=== PATIENT | female | born 1980 | race Caucasian/White ===

== ENCOUNTER 2023-05-08 13:42 | Inpatient (IN) | payer SELFPAY ==
[~2023-05-08] VITALS: Ht 162.6 cm; Wt 97.1 kg
[2023-05-08] MEDS ORDERED: LEXAPRO10 MG PO (13:58)
[2023-05-08] MEDS ORDERED: NP THYROID60 MG PO (13:58)
[2023-05-08 14:45] LABS: BASOPHILS 0.2 % (0-2); EOSINOPHILS 0.5 % (0-6); HEMATOCRIT 42.2 % (35.0-50.0); HEMOGLOBIN 14.2 g/dL (12.0-18.0); LYMPHOCYTES 10.2 % (24-44); MCH 30.7 (27-36); MCHC 33.7 g/dl (30-36); MCV 91.2 fl (81-99); MONOCYTES 6.1 % (0-12); PLATELET COUNT 340 K/uL (140-440); RBC 4.63 M/ul (4.3-5.7); RDW 14.7 (10.5-15.0)
[2023-05-08 15:00] LABS: ALBUMIN 3.8 g/dL (3.4-5.0); ANION GAP 14.5 (7-21); BILIRUBIN, TOTAL 0.6 ng/dL (0.2-1.0); BUN/CREATININE RATIO 17.74 (6.0-28.6); CALCIUM 9.1 mg/dL (8.5-10.1); CREATININE, SERUM 0.62 mg/dL (0.55-1.02); POTASSIUM 3.5 mmol/L (3.5-5.1); PROTEIN, TOTAL 7.6 g/dL (6.4-8.2)
[2023-05-08] MEDS ORDERED: SODIUM CHLORIDE 0.9% 1,000 ML IV ONE (15:00)
[2023-05-08] MEDS ORDERED: HYDROmorphone HCL 1 MG/ML SYR IV PRN ×5 (15:00→22:00)
[2023-05-08 15:39] LABS: BILIRUBIN, URINE NEGATIVE (negative); BLOOD/HGB, URINE TRACE-I (Negative); KETONE, URINE SMALL (Negative); LEUK ESTERASE, URINE NEGATIVE (negative); NITRITE, URINE NEGATIVE (negative)
[2023-05-08 15:48] LABS: EPITHELIAL CELLS, URINE SQUAMOUS 1+ /lpf (0-1+); REFLEX CULTURE, URINE No (No); WHITE BLOOD CELLS, URINE 0-1 /HPF (0-5)
[2023-05-08] MEDS ORDERED: LACTATED RINGER'S 1,000 ML IV SCH ×3 (16:45→17:15)
[2023-05-08] MEDS ORDERED: DEXTROSE 5% 100 ML IV ONE (16:59)
[2023-05-08] MEDS ORDERED: PIPERACILLIN/TAZOBACTAM 3.375 GM in DEXTROSE 5% 100 ML IV ONE ×4 (17:00→17:15)
[2023-05-08] MEDS ORDERED: FAMOTIDINE 20 MG/ 2 ML VIAL IV ONE ×2 (17:00)
[2023-05-08] MEDS ORDERED: KETOROLAC TROMETHAMINE 30 MG/ML VIAL IV PRN ×2 (17:15)
[2023-05-08] MEDS ORDERED: ondansetron HCL 4 MG/2 ML VIAL IV PRN ×3 (17:15→18:45)
[2023-05-08] MEDS ORDERED: KETOROLAC TROMETHAMINE 30 MG/ML VIAL ONE (17:26)
[2023-05-08] MEDS ORDERED: METOCLOPRAMIDE HCL 10 MG/2 ML SDV ONE (17:26)
[2023-05-08] MEDS ORDERED: propofoL 200 MG/20 ML VIAL ONE (17:26)
[2023-05-08] MEDS ORDERED: ondansetron HCL 4 MG/2 ML VIAL ONE (17:26)
[2023-05-08] MEDS ORDERED: fentaNYL citrate 100 MCG/2 ML VIAL ONE (17:26)
[2023-05-08] MEDS ORDERED: MIDAZOLAM HCL 2 MG/2 ML VIAL ONE (17:26)
[2023-05-08] MEDS ORDERED: SUCCINYLCHOLINE IN 0.9% NACL 200 MG/10 ML SYRINGE ONE ×2 (17:26→19:54)
[2023-05-08] MEDS ORDERED: DEXAMETHASONE SOD PHOS 4 MG/ML VIAL ONE (17:26)
[2023-05-08] MEDS ORDERED: ROCURONIUM BROMIDE 50 MG/5 ML SYR ONE (17:26)
[2023-05-08] MEDS ORDERED: LIDOCAINE HCL 4% 5 ML AMP ONE (17:26)
[2023-05-08] MEDS ORDERED: LACTATED RINGER'S 1,000 ML IV ONE ×3 (17:26→19:12)
[2023-05-08] MEDS ORDERED: SUGAMMADEX SODIUM 200 MG/2 ML ML ONE (17:26)
[2023-05-08] MEDS ORDERED: FAMOTIDINE 20 MG/ 2 ML VIAL ONE (17:26)
[2023-05-08] MEDS ORDERED: DIGOXIN 500 MCG/2 ML AMP ONE (18:07)
[2023-05-08] MEDS ORDERED: HYDROCORTISONE SOD SUCCINATE 100 MG/2 ML VIAL ONE (18:07)
[2023-05-08] MEDS ORDERED: SODIUM CHLORIDE 0.9% 40 ML IV ONE (18:23)
[2023-05-08] MEDS ORDERED: Ropivacaine HCl 0.5% 30 ML VIAL ONE (18:23)
[2023-05-08] MEDS ORDERED: METOCLOPRAMIDE HCL 10 MG/2 ML SDV IV PRN (18:45)
[2023-05-08] MEDS ORDERED: PROCHLORPERAZINE EDISYLATE 10 MG/2 ML VIAL IV PRN (18:45)
[2023-05-08] MEDS ORDERED: NALOXONE HCL 0.4 MG SYR IV PRN (18:45)
[2023-05-08] MEDS ORDERED: fentaNYL citrate 100 MCG/2 ML VIAL IV PRN (18:45)
[2023-05-08] MEDS ORDERED: IBLOOD GLUCOSE TEST STRIP 1 EA TEST VI PRN (18:45)
[2023-05-08] MEDS ORDERED: MORPHINE SULFATE 10 MG/ML VIAL IV PRN (18:45)
[2023-05-08] MEDS ORDERED: droPERidol 5 MG/2 ML VIAL IV PRN (18:45)
[2023-05-08] MEDS ORDERED: LIDOCAINE 2% VISCOUS 6 ML SYR TOP ONE ×2 (21:00)
[2023-05-08] MEDS ORDERED: FAMOTIDINE 20 MG/ 2 ML VIAL IV SCH ×2 (21:00)
[2023-05-08] MEDS ORDERED: ACETAMINOPHEN 500 MG TAB PO PRN ×2 (21:00)
[2023-05-08] MEDS ORDERED: HEParin SOD (PORCINE) 5,000 UNIT/0.5 ML SYR SUB-Q SCH ×2 (21:00)
[2023-05-08] MEDS ORDERED: ACETAMINOPHEN 1,000 MG/100 ML VIAL ONE (21:01)
--- NOTE | 2023-05-08 21:07 | NUR ---
05/08/232106 Inga Ridley 2033- PT ARRIVES TO PACU UNIT FROM OR VIA BED. PT IS NONRESPONSIVE TO TACTILE STIMULI AT THIS TIME. PT IS ON 11L OF O2 VIA MASK AT THIS TIME, JAW THRUST BEING PERFORMED BY CHERYL JEFFERS. RESPIRATIONS ARE EVEN AND UNLABORED, NO SIGNS OF DISTRESS. ORAL AIRWAY IN PLACE. REPORT RECEIVED FROM FOZIA MCCURDY AT BEDSIDE. 2039- SUCTION D/T SLIGHT AUDIBLE NOISE WHEN BREATHING. RESPIRATIONS ARE EVEN AND UNLABORED, NO SIGNS OF DISTRESS. PT REMAINS NONRESPONSIVE TO TACTILE STIMULI AT THIS TIME. 2042- PT BEGINS TO OPEN EYES, PT IS RESPONSIVE TO VERBAL STIMULI AT THIS TIME. ORAL AIRWAY REMAINS IN PLACE, PT UNABLE TO OPEN MOUTH AT THIS TIME FOR AIRWAY REMOVAL. 11 L OF O2 VIA MASK IN PLACE, RESPIRATIONS EVEN AND UNLABORED, O2 >90% VIA CONT PULSE OX AT THIS TIME.
[2023-05-08 21:54] VITALS: BP 142/79
[2023-05-08] MEDS ORDERED: PIPERACILLIN/TAZOBACTAM 3.375 GM in DEXTROSE 5% 100 ML IV SCH ×2 (22:00)
[2023-05-08] MEDS ORDERED: ACETAMINOPHEN 1,000 MG/100 ML VIAL IV PRN ×2 (22:00)
--- NOTE | 2023-05-08 22:09 | NUR ---
ADMITTED FROM OR/PACU AT 2136, DROWSY, RECEIVED OFIRMEV IV PRIOR TO LEAVING PACU. ON ROOM AIR, IVF INFUSING L WRIST AREA. ABD SITE WITH MIDLINE INCISION, VERY FAINT BOWEL TONES LOWER ABDOMEN, WARREN R LOW ABD, COVERED WITH ACTICOAT DRESSING CDI, SCDS IN PLACE. AT BEDSIDE
[2023-05-08] MEDS ORDERED: PIPERACILLIN/TAZOBACTAM 3.375 GM VIAL ONE (22:42)
[2023-05-08 22:51] VITALS: BP 130/74
[2023-05-08 23:51] VITALS: BP 128/73
--- NOTE | 2023-05-08 23:58 | NUR ---
AWAKEN EASILY, NO C/O N/V OR PAIN. IVF INFUSING, F/C PATENT. COOP WITH VITALS,
[2023-05-09] VITALS (8 sets, daily range): BP systolic 118–130; BP diastolic 69–76
--- NOTE | 2023-05-09 00:57 | NUR ---
POST OP VITALS COMPLETED. PT WAKES TO VOICE, CLEARNING THROAT, IS ENCOURAGED TO TAKE DEEP BREATHS WHILE AWAKE, SEVERAL DRINKS WATER GIVEN. STATED SHE IS WARM, BLANKET AND SHEET REMOVED. SCD'S IN PLACE, CPOX, IV INFUSING WNL. REMOVED COBAN FROM LEFT HAND, NOTED EDEMA FROM WRAP IN FINGERS. PRESENT, HE DENIES NEEDS WHEN OFFERED.
--- NOTE | 2023-05-09 03:16 | NUR ---
awakes easily, c/o abd pain, medicated with toradol. tolerating sips of fluids. no emeis. up to edge of bed w 2PA, tolerated well, back to bed. Midline abd incision dressing CDI, no changes in bowel tones. WARREN dressing intact. WARREN patent draining SS drainage, small amount and f/c patent. SCD's inplace, IVF infusing. post op CPOX inplace.
[2023-05-09] MEDS ORDERED: PIPERACILLIN/TAZOBACTAM 3.375 GM VIAL ONE (05:31)
--- NOTE | 2023-05-09 05:58 | NUR ---
Pt has been medicated with Tylenol IV in PACU prior to admit to this unit,, has been medicated with Toradol and Dilaudid with good pain relief. IVf infusing LW w/o problems. Pt able to satand edge of bed and walked several step[s to HOB. 1-2PA, backa to bed, tolerated well, on room air, post op CPOX in place. midline abd incision covered with Opticot, WARREN paten, abd tender, slight distention, pt staed normal. rare bowel tones auscultated. not passing gas. SCD's in place. f/c patent. Pt pleasant and cooperative, follows instructions. Tolerating liquids well, no n/v rooming in.
--- NOTE | 2023-05-09 07:30 | NUR ---
PT RESTING IN BED WITH AT BEDSIDE. PT ALERT AND AWAKE WITH RESPIRATIONS EVEN AND UNLABORED. CALL LIGHT WITHIN REACH.
--- NOTE | 2023-05-09 07:50 | NUR ---
PATIENT USED CALL LIGHT. NURSE INTO ROOM. PATIENT WOULD LIKE HER BREAKFAST SET UP BY HER. PATIENT TRAY ALL SET UP. AT BEDSIDE HELPING . PATIENT RUST EMPTIED. GIVEN COFFEE WITH CREAMER. DENIES ANY OTHER CARES AT THIS TIME. FRESH WATER GIVEN.
[2023-05-09 08:44] LABS: BASOPHILS 0.1 % (0-2); EOSINOPHILS 0.2 % (0-6); HEMATOCRIT 39.9 % (35.0-50.0); HEMOGLOBIN 13.2 g/dL (12.0-18.0); LYMPHOCYTES 7.5 % (24-44); MCV 90.9 fl (81-99); MONOCYTES 4.4 % (0-12); NEUTROPHILS 87.8 % (39-80); PLATELET COUNT 305 K/uL (140-440); RBC 4.39 M/ul (4.3-5.7); RDW 14.6 (10.5-15.0)
--- NOTE | 2023-05-09 08:52 | NUR ---
PATIENT HAS HOME MEDICATIONS IN THE ROOM THAT SHE TAKES EVERYMORNING. PATIENT WAS BROUGHT TO THE FLOOR LAST NIGHT. PHONE CALL TO PHARMACY. WILL HAVE TO OK PATIENT TO START THEM. IN SURGERY AT THIS TIME. WILL TALK TO HIM WHEN HE IS ON THE FLOOR.
[2023-05-09 08:53] LABS: ANION GAP 13.5 (7-21); CALCIUM 8.4 mg/dL (8.5-10.1); CREATININE, SERUM 0.6 mg/dL (0.55-1.02); POTASSIUM 3.5 mmol/L (3.5-5.1)
--- NOTE | 2023-05-09 09:37 | NUR ---
medications reconciled using pharmacy records and prescription vials
--- NOTE | 2023-05-09 10:00 | NUR ---
Spoke with pt and spouse. She states they live in house with 2 steps in [place]. She has 6 children ranging in age from 6-21. Pt is self pay and I offered to have Agueda from eligibility to visit with them. Spouse declines and states they will take care of the bill without assistance. Pt does not use any DME. Spouse states he and children will complete household tasks, shopping, cooking, cleaning. Pt does not have a PCP. The listed is her OBGYN. She would like a pcp in [place]. Let her know I can put her [facility]. They save fu appts for pt discharging. She will need to discuss with them getting a PCP at her FU appt. I will contact Anthony at the [facility].
--- NOTE | 2023-05-09 10:11 | NUR ---
RUST HAS BEEN REMOVED. NO COMPLICATIONS. PATIENT AWARE TO CALL WITH CALL LIGHT WHEN SHE IS READY TO GET UP. PATIENT DENIES ANY OTHER CARES AT THIS TIME. IN ROOM WITH HER. PER PATIENT TO REMAIN ON CLEAR FLUIDS, D/C RUST AND TRY TO GET PATIENT UP OUT OF BED MORE OFTEN. PATIENT AWARE OF THESE GOALS AND AGREES. LIGHTS TURNED DOWN FOR PATIENT TO GET SOME REST.
--- NOTE | 2023-05-09 10:13 | NUR ---
OK FOR PATIENT TO START HOME MEDICATIONS PER , PHARMACY ADVISED THEY ALREADY CHECKED HOME MEDICATIONS AND WILL PUT THEM IN.
[2023-05-09] MEDS ORDERED: THYROID 60 MG TAB PO SCH ×2 (10:22)
[2023-05-09] MEDS ORDERED: ESCITALOPRAM OXALATE 20 MG TABLET PO SCH ×2 (10:22)
--- NOTE | 2023-05-09 10:23 | NUR ---
ROUNDS. PT ON PHONE. DID NOT DISTURB. PROVIDED PRAYER.
[2023-05-09] MEDS ORDERED: ESCITALOPRAM OXALATE 10 MG TAB PO SCH ×2 (10:24)
--- NOTE | 2023-05-09 11:36 | NUR ---
UR CLINICAL REVIEW 2 MN RULE FOR VERSALUS SELF PAY INPT 05/08/23 @ 1656 YES ORDER MATCHES ADMITTED FROM HOME, DISCHARGE TO HOME WHEN STABLE 05/11/23
--- NOTE | 2023-05-09 12:08 | NUR ---
PATIENT CALLED NURSE INTO ROOM TO USE THE RESTROOM. PATIENTS FIRST TIME UP BESIDES SITTING ON THE SIDE OF THE BED. PATIENT TOLERATED WELL, USED PILLOW ON ABDOMEN. PATIENT HAD POST VOID SINCE RUST REMOVED. PATIENT THEN UP AND INTO THE CHAIR. PATIENT GIVEN LUNCH TRAY. PATIENT GIVEN A BLANKET AND BED WAS MADE.
--- NOTE | 2023-05-09 14:10 | NUR ---
PATIENT FEELS LIKE SHE IS NOT ABLE TO GET ANY REST BECAUSE OF THE PAIN AT TIMES. SEE EMAR PATIENT GIVEN TORADOL TO SEE IF SHE CAN GET SOME SLEEP.
--- NOTE | 2023-05-09 15:32 | NUR ---
Chart copied and scanned to Anthony Duncan at the [facility]. Requested fu visit and PCP to establish care as this pt only has a OBGYN at this time.
--- NOTE | 2023-05-09 17:50 | NUR ---
ASSISTED PT FROM BATHROOM, ENCOURAGED A SHORT WALK, PT AGREED. AMBULATED IN POZO FROM ROOM 122 TOWARD NURSES STATION AND BACK. SAT ON EDGE OF BED, STATED THAT WALK WAS BETTER THAN I THOUGHT, SONNY STATED. VISTED ABOUT HER FAMILY, SHE SPENT TIME IN THE [facility], SHE STATES THAT SHE ENJOYED THE WALK.
[2023-05-09] MEDS ORDERED: MELATONIN 3 MG TAB PO SCH ×2 (21:00)
--- NOTE | 2023-05-09 21:26 | NUR ---
C/O ABD PAIN, MEDICATED WITH TYLENOL 1000MG PO. COOP WITH ASSESSMENT, UP TO BRP, IVF INFUSING
--- NOTE | 2023-05-10 01:45 | NUR ---
1pa PATIENT UP TO BATHROOM. VOIDED 250ML YELLOW URINE. PATIENT IS BACK IN BED. SLOW TO MOVE BUT TOLERATED GOOD. PATIENT C/O NOT ABLE TO GET SOME SLEEP AND NEEDS SOMETHING TO HELP IF THERE IS. ALSO C/O PAIN. PRIMARY RN NOTIFIED. ASSISTED PATIENT LIFT HER LEGS UP TO THE BED. NO OTHER NEEDS AT THIS TIME.
--- NOTE | 2023-05-10 02:12 | NUR ---
pT C/O ABD PAIN, MEDICATED WITH TORADOL iv. SITE INTACT. max WITH SS DRAINAGE. OLD DRAINGE AT INSERTIN SITE. STATES PASSING MORE RECTAL GAS. ABD SOFT, TENDER monik. ON ROOM AIR, HAD GOTTEN UP TO brp EARLIER, VOIDING qs, scd'S IN PLACE
[2023-05-10 06:12] VITALS: BP 118/69
--- NOTE | 2023-05-10 06:27 | NUR ---
pT AWAKE AT THIS TIME, RECEIVED MELATONIN X1 PER INSOMNIS WITH POOR RESULTS. ON ROOM AIR, IVF INFUSING W./O PROBLEMS. NO C/O ADVERSE REACTION TO ABX. MIDLINE ABD INCISION WITH ACTICOAT DRESSING CDI. RQ WARREN SITE WITH OLD DRAINAGE AT INSERTION SITE. DRAINING SS DRAINAGE. NELLA, TENDER ABD, STATED PASSING GAS. UP TO BRP SEVERAL TIMES, VOIDING QS, WALKED HALLWAYS, TOLERATED WELL, REPOSITINS SELF IN BED, SCDS IN PLACE. WAS MEDICATED X2 WITH TYLENOL DNAD TORADOL WITH GOOD PAIN RELIEF. TOLERATING LIQUIDS WELL, PT STAED EARLIER THAT SHE HAS MILD CELIAC DISEASE AND EATS GLUTTEN FREE DIET. WILL NOTIFY INCOMING RN AND MD. ROOMING IN
--- NOTE | 2023-05-10 07:30 | NUR ---
Report received from Nguyen JEFFERS. Patient sitting up in bed, alert and oriented, states no pain or needs at this time. ABD visualized, dressing over midline incision intact, WARREN site WNL, serosanguinous drainage noted. IVF and IV ABX infusing WNL. Pt at bedside. Will continue plan of care.
--- NOTE | 2023-05-10 08:21 | NUR ---
PATIENT CALLED TO USE BATHROOM. PATIENT UP TO BATHROOM AND THEN TO CHAIR, SBA. PATIENT TOLERATED ACTIVITY WELL. LINENS CHANGED. VISITOR IN ROOM. CALL LIGHT IN REACH. NO FURTHER NEEDS AT THIS TIME.
[2023-05-10] MEDS ORDERED: FAMOTIDINE 20 MG TAB PO SCH ×2 (09:00)
--- NOTE | 2023-05-10 09:03 | NUR ---
Scheduled medications administered, assessment complete. Pt A+O, states no pain or nausea. IV ABX infusing WNL. IV site patent. Pt RR even and unlabored, HR, S1/S2 WNL. LSC and equal. Bowel tones hypoactive. Midline incision C/D/I with acetecote. WARREN drain site WNL, serosanguinous. Pt states enjoyed breakfast, no concerns or questions.
[2023-05-10 09:36] VITALS: BP 120/75
--- NOTE | 2023-05-10 09:38 | NUR ---
PATIENT UP TO BATHROOM FROM CHAIR THEN TO BED, SBA. VITALS AND I&O'S DONE AND CHARTED. VISITOR IN ROOM. FRESH WATER GIVEN. CALL LIGHT IN REACH. NO FURTHER NEEDS AT THIS TIME.
[2023-05-10 10:03] VITALS: BP 120/75
--- NOTE | 2023-05-10 11:27 | NUR ---
INTO CHECK ON PATIENT. PATIENT HELPED UP TO THE RESTROOM. PATIENT BRUSHED TEETH AND CLEANED UP. BRUSHED HAIR AND GOT PATIENT BACK TO BED. PATIENT DENIES ANY OTHER CARES AT THIS TIME.
--- NOTE | 2023-05-10 12:20 | NUR ---
IV pump alarming, patient requesting PRN toradol for 3/10 incisional pain, administered. Fresh ice water provided. No further needs.
[2023-05-10 13:29] VITALS: BP 119/75
--- NOTE | 2023-05-10 13:33 | NUR ---
PATIENT UP TO USE THE RESTROOM. NURSE SBA ONLY. TOLERATED WELL.
--- NOTE | 2023-05-10 13:58 | NUR ---
PATIENT AMBULATED 2 LAPS IN [facility] PATIENT TOLERATED AMBULATION VERY WELL. PATIENT NOW BACK IN ROOM SITTING UP IN BED, FAMILY IN ROOM. CALL LIGHT IN REACH. NO FURTHER NEEDS AT THIS TIME.
--- NOTE | 2023-05-10 14:45 | NUR ---
IV ABX infusing WNL. Patient states no needs at this time, sitting up in bed. States ambulating went well.
--- NOTE | 2023-05-10 16:00 | NUR ---
Spoke with Damián. She states she feels much better today. Denies needs. I offered coloring book and word seach. She agrees to both. Word search, color book, color pencils, and sharpener given.
--- NOTE | 2023-05-10 18:06 | NUR ---
Patient ambulating in the hallway with her daughters. IVF infusing WNL. No needs identified at this time.
[2023-05-10 18:15] VITALS: BP 129/73
--- NOTE | 2023-05-10 18:17 | NUR ---
PATIENT WANTED TO GO ON A WALK AND WANTED HER KIDS TO TAKE HER. I GAVE HER A SET OF NEW BED SHEETS AND OFFERED IF SHED WANT A WALKER OR A WHEEL CHAIR BY HER IN CASE SHE NEEDED IT AND SHE DECLINED. SHE ALSO ASKED FOR A REFILL OF WATER.
--- NOTE | 2023-05-10 19:45 | NUR ---
REPORT RECEIVED FROM DAY SHIFT RN. PT LYING IN BED ALERT AND ORIENTED. DISCUSSED HOME SLEEP MED. VERBAL ORDER RECEIVED FROM MD VERIFIED WITH READBACK METHOD THAT PT MAY TAKE HOME DOSE OF 25MG DOXYLAMINE AND TO SL IVF.
--- NOTE | 2023-05-10 19:48 | NUR ---
IV PUMP ALARMING. TUBING WITH AIR BUBBLES, IV ANTIBIOTIC NOTED TO BE FULL, 1400 DOSE NOT INFUSED. PRIMARY RN UPDATED. TELEPHARMACY CALLED, OTISSYN SAFE TO ADMINISTER FOR 24 HOURS AFTER RECONSTITUTED. IV SITE FLUSHED. IV ANTIBIOTIC INFUSING WNL, NEW TUBING IN PLACE. pt COMPLAINS OF 3/10 ABDOMINAL PAIN, PRN TORADOL ADMINISTERED. pt REQUESTING HOME SLEEP MEDICATION, TO ORDER.
[2023-05-10] MEDS ORDERED: PATIENT'S OWN MEDICATION(S) ORDER PO PRN ×2 (20:00)
--- NOTE | 2023-05-10 20:29 | NUR ---
THIS RN IN MED ROOM WITH FLAKO VIA TELEPHARMACY TO VERIFY pt's OWN MED VIA SKYPE- pt TAKES UNISOM 25MG PO IN THE EVENING PRN FOR SLEEP AID. MED VERIFIED AND NOW IN pt ROOM LOCK BOX. PRIMARY RN AWARE. TELEPHARMACY TO ALSO RETIME pt's IV ZOSYN.
[2023-05-10] MEDS ORDERED: DOXYLAMINE 25 MG PO PRN ×2 (20:30)
[2023-05-10 21:09] VITALS: BP 118/73
--- NOTE | 2023-05-10 21:41 | NUR ---
EVENING ASSESSMENT COMPLETE. SCHEDULED MEDS ADMIN PER EMAR. PT REPORTS ABD PAIN TOLERABLE 05/28. DENIES NAUSEA. BOWEL TONES ACTIVE. PT REPORTS "A LOT" OF FLATUS AFTER EVENING WALK. ABD SOFT AND MILDLY DISTENDED. REPORTS SHE HAD SOME CRAMPING AFTER REGULAR DINNER BUT THAT HAS RESOLVED. PT DENIES QUESTIONS OR CONCERNS. IN ROOM. CALL LIGHT IN REACH.
--- NOTE | 2023-05-10 23:53 | NUR ---
PT RESTING IN BED WITH EYES CLOSED. HOB ELEVATED. CALL LIGHT IN REACH.
[2023-05-11] VITALS (8 sets, daily range): BP systolic 104–125; BP diastolic 66–83
[2023-05-11] MEDS ORDERED: PIPERACILLIN/TAZOBACTAM 3.375 GM in DEXTROSE 5% 100 ML IV SCH ×2 (04:00)
--- NOTE | 2023-05-11 05:47 | NUR ---
[facility]. SEE PAPER CHARTING.
--- NOTE | 2023-05-11 06:09 | NUR ---
VS AND I&O'S COLLECTED AND CHARTED. CERAMICS ENGINEER REMAINS IN ROOM TO HELP pt [facility] GOWN PER pt REQUEST. CALL LIGHT IN REACH.
--- NOTE | 2023-05-11 07:10 | NUR ---
REPORT RECEIVED FROM ZEYAD DE LA VEGA. PT SITTING UP IN BED AND RESPONDS WHEN ADDRESSED. PT DENIES ANY NEEDS AT THIS TIME. CALL LIGHT IN REACH.
--- NOTE | 2023-05-11 09:12 | NUR ---
IN TO ADMINISTER MEDICATIONS WITH SN KEE AND SN YVONNE. PT SITTING UP IN RECLINER AND TAKES PO MEDICATIONS WITH NO ISSUES. ASSESSMENT COMPLETE. LUNG SOUNDS CLEAR. BOWEL TONES ACTIVE. PT REPORTS ABD TENDERNEES TO RLQ WITH PALPATION. BRUISING NOTED TO ABD, SCATTERED. MIDLINE DRESSING C/D/I. RLQ WARREN DRAIN NOTED TO HAVE SEROUSANGUENOUS DRAINGE. WARREN CARE PROVIDED. DRESSING TO WARREN C/D/I. PT REPORTING PAIN 05/28. PT DENIES PRN PAIN MEDICATION WHEN OFFERED. WATER AND COFFEE PROVIDED. IV FLUSHES AND IS INFUSING WNL. PT DENIES ANY OTHER NEEDS AT THIS TIME. CALL LIGHT IN REACH.
--- NOTE | 2023-05-11 10:10 | NUR ---
PT AMBULATING POZO WITH SN KEE AND SN YVONNE.
--- NOTE | 2023-05-11 12:30 | NUR ---
IN TO ADMINISTER MEDICATION, SEE MAR. PT SITTING UP IN RECLINER. PT REPORTING TOILETING NEEDS. PT AMBULATES TO RESTROOM AND BACK TO RECLINER WITH NO ISSUES. PT NOTED TO HAVE STEADY GAIT. PT REPORTING "UNCOMFORTABLE" PAIN 04/30. PT DENIES PRN PAIN MEDICATION WHEN OFFERED. ICE WATER PROVIDED. PT DENIES ANY OTHER NEEDS AT THIS TIME. CALL LIGHT IN REACH.
--- NOTE | 2023-05-11 13:37 | HP ---
[facility] [address], [place] [address] Signed ADMISSION DATE: 05/08/2023 REASON FOR ADMISSION: Very symptomatic ileocolonic intussusception. HISTORY OF PRESENT ILLNESS: This 42-year-old white woman is accompanied by her . They have six children together and live in [facility] where they have lived for quite some time. Her oldest child is 21 years of age. The patient presented with sudden onset of right-sided abdominal pain following awakening this morning. She has had no nausea, vomiting, or diarrhea. She has never had symptoms of this in the past. She presented to the emergency room and was evaluated thoroughly by Dr. Montero including clinical examination confirming right-sided tenderness, but no palpable mass. A CT scan of the abdomen was performed, which showed an ileocolonic intussusception extending to the hepatic flexure with wall-thickening and possible pneumatosis with consideration of possible necrosis. Her white count was elevated to 16.1, platelets normal at 340,000, hematocrit 42.2 with normal electrolytes and a creatinine of 0.62. Liver enzymes were normal as well. She has no prior history of neoplasm. No family history of lymphoma. Her maternal grandmother was said to have had breast cancer. The patient has never had abdominal surgery. Her other medical issues include hypothyroidism for which she takes ADMINISTRATIVE EXECUTIVE Thyroid 60 mg daily and escitalopram (Lexapro) 20 mg daily. She sees a provider in [place], [place], Dr. Katya Hicks in [place], [place]. SOCIAL HISTORY: She is . She is accompanied by her . They have six children together. PHYSICAL EXAMINATION: GENERAL: This is a pleasant white woman, who does look to be quite uncomfortable at this time. 5 feet 4 inches in height, 89.9 kg in weight. BMI of 34. HEENT: Mucous membranes are slightly dry. An IV is running. Trachea is midline. CHEST: Shows normal respiratory excursion. Pulses regular. ABDOMEN: Somewhat obese, but generally soft. There is mild right-sided abdominal tenderness. There is no crepitus on the abdominal wall. VITAL SIGNS: Temperature is 98.9, pulse 70, respirations 18, blood pressure 131/89, O2 saturation 96% on room air. LABORATORY STUDIES: Electronically Signed By: FOZIA PASCAL MD 05/11/23 1337 PATIENT NAME: SONNY RUIZ HISTORY AND PHYSICAL DATE OF : 78 REPORT #: [id number] PHYSICIAN: FOZIA PASCAL MD PCP: KATYA HICKS MD REPORT IS CONFIDENTIAL AND NOT TO BE RELEASED WITHOUT AUTHORIZATION [facility] [address], [place] [address] Signed Show a hematocrit of 42.2, white count 16.1, platelets of 340,000. Electrolytes normal as described as were liver enzymes. CT scan was reviewed confirming complex edematous changes and transverse (axial) views highly suggestive of intussusception with a bull's-eye look. There is no obvious hepatic neoplasm or neoplasm elsewhere. The aorta and vena cava appeared normal. ASSESSMENT: The patient has an ileocolonic intussusception, which is acute and quite painful. Fluid resuscitation has been initiated as have been antibiotic Zosyn (piperacillin). I discussed the pathophysiology of this problem with the patient and her . Often such findings in adulthood are related to neoplasm and we discussed that as well. Given the findings and uncertain as to ischemia and/or pneumatosis, I would recommend prompt laparotomy with right colectomy as appropriate. The risk of bleeding, infection, anastomotic failure, and so forth were all reviewed in detail. She shows no evidence of metastatic disease on the CT scan that has been performed and the possibility of lymphoma has a "lead point" or other neoplastic process providing the intussusception is acknowledge by all. MD RADHA Mary/MODL /[id number] cc: Katya Hicks MD [place] Lobo Montero MD [facility] Copies: ~ Electronically Signed By: FOZIA PASCAL MD 05/11/23 1337 PATIENT NAME: SONNY RUIZ HISTORY AND PHYSICAL DATE OF : 78 REPORT #: [id number] PHYSICIAN: FOZIA PASCAL MD PCP: KATYA HICKS MD REPORT IS CONFIDENTIAL AND NOT TO BE RELEASED WITHOUT AUTHORIZATION
--- NOTE | 2023-05-11 13:37 | OR ---
[facility] [address], [place] [address] Signed DATE OF OPERATION: 05/08/2023 SURGEON: Fozia Pascal MD PREOPERATIVE DIAGNOSIS: Ileocolic intussusception with severe abdominal pain. POSTOPERATIVE DIAGNOSES: 1. Ileocolic intussusception with severe abdominal pain. 2. Bulky 6 cm soft tissue mass of proximal cecum. 3. Small 2 cm nodule of peritoneum (excised). PROCEDURE: 1. Exploration of abdomen and right with wide mesenteric resection and ljbq-jg-[id number] hand-sewn ileotransverse colon anastomosis. 2. Excision of peritoneal nodule (2 cm). EYELET MACHINE OPERATOR: Rosalia Beyer RN ANESTHESIA: General endotracheal, Fozia Meraz CRNA INDICATIONS: This 42-year-old white woman lives in [place], [place] who presented to the emergency room late in the afternoon with pain that began earlier in the day. She had severe and unrelenting right-sided abdominal pain. Evaluation by Dr. Lobo Montero included a CT scan of the abdomen as well as clinical examination, which showed a bulky intussusception of the ileum into the right colon extending up to about the hepatic flexure. No specific neoplasm is identified at this point. She had severe pain, which was marginally benefitted by intravenous opioids. She has been fluid resuscitated, given intravenous antibiotics and now to undergo right colectomy with resection of the right colon as there was some question of pneumatosis and so forth. The patient and her understand well the risk of bleeding, infection, anastomotic failure, need for additional treatment should malignancy be found as a lead point, and other unforeseen complications and wished to proceed. FINDINGS: There was no evidence of carcinomatosis, though there was a white 2 cm soft tissue nodule of the mesentery of the sigmoid, probably unrelated to the issue at hand. There Electronically Signed By: FOZIA PASCAL MD 05/11/23 4379 PATIENT NAME: SONNY RUIZ OPERATIVE REPORT DATE OF : 78 REPORT #: [id number] PHYSICIAN: FOZIA PASCAL MD PCP: BIJAN MAHARAJ MD REPORT IS CONFIDENTIAL AND NOT TO BE RELEASED WITHOUT AUTHORIZATION [facility] [address], [place] [address] Signed was dense intussusception of the ileum into the right colon extending up to the hepatic flexure. Wide resection of the right colon and right transverse colon incontinuity with the ileum without reducing the process was undertaken with wide resection of the mesentery. There did not appear to be obvious lymph node enlarged in the right colonic mesentery, though there were certainly a few that were seen. A bmkd-zq-ypax hand-sewn anastomosis was deemed most advisable under the circumstances of her situation and was accomplished without problem. There is no evidence of palpable or visible hepatic abnormality. The remaining small-bowel was otherwise normal as was the stomach. DESCRIPTION OF PROCEDURE: The patient was brought to the operating room and given a general endotracheal anesthetic. Preoperative antibiotic Zosyn had been given. Sequential compression device stockings were used as well. A Nava catheter was placed. The abdomen was palpated prior to preparation showed a bulky mass in the right mid abdomen. The abdomen was prepared with a chlorhexidine solution and draped sterilely. An incision was made extending from just above the umbilicus inferiorly to the mid lower abdomen. Dissection was carried through the subcutaneous tissue with electrocautery. The abdomen was entered without problem. Intra-abdominal inspection showed no sign of ascites or carcinomatosis. Palpation revealed a bulky mass, which included the right colon. Dense intussusception of the ileum into the right colon was noted. The small-bowel was noted to be normal. Otherwise, there was a white multi papillary nodule of the mesentery of the small-bowel, which was easily excised and passed for permanent pathology, probably unrelated to her current finding. The liver was palpably and visibly normal. The remaining small-bowel was otherwise normal and was packed to the left side of the abdomen. A Bookwalter retractor was ultimately obtained. It was deemed advisable to resect the right colon in continuity with the intussusception ileum without attempting reduction of the abnormality, so as to avoid breakage of the bowel and enteric content spillage. On that basis, the white line of Toldt was incised with electrocautery and the right colon rotated to the midline with blunt electrocautery dissection. This allowed for complete explantation of the terminal ileum and all of the right colon out of the wound. At that point, the Bookwalter retractor was set up. The small-bowel was retracted more medially. Examination of the retroperitoneum showed the Gerota's fascia to be free of neoplasm or other abnormality. The mesentery was examined carefully and the ileocolic artery easily identified and a segment relatively high on it, but not extending to hazard the superior mesenteric artery identified. The mesentery was scored with electrocautery medially and the hepatic flexure mobilized with blunt electrocautery dissection already identifying the duodenum. The area of the right transverse colon was designated as appropriate for transection after transillumination of the transverse mesocolon. The middle colic Electronically Signed By: FOZIA PASCAL MD 05/11/23 1337 PATIENT NAME: SONNY RUIZ OPERATIVE REPORT DATE OF : 78 REPORT #: [id number] PHYSICIAN: FOZIA PASCAL MD PCP: BIJAN MAHARAJ MD REPORT IS CONFIDENTIAL AND NOT TO BE RELEASED WITHOUT AUTHORIZATION [facility] [address], [place] [address] Signed artery was allowed to remain in place. The mesentery was scored and the marginal artery along the transverse colon, secured with hemostats, divided and secured with silk ties. The right transverse colon was transected with a ANAND stapling device ([employer]). There was bleeding on the staple line, which was secured with electrocautery and later secured with interrupted 3-0 silk sutures for its hemostatic benefit. The mesentery of the right colon was then incised with electrocautery and sequential application of hemostats to the vascular pedicles undertaken. Dissection was carried up to approximately 10 cm proximal to the intussusception portion of the ileum, maintaining good vascularity. Again with transillumination of the ileal mesentery with preservation of good blood flow. The terminal ileum was transected with a ANAND stapling device as well. The specimen was explanted and photographed on the back table and later manipulated free of the intussusception portion incising the mucosa and examining internally. There was found to be a lead point, which was a bulky 6 cm soft tissue mass, which may or may not be malignant. It did not have the characteristics of typical colon cancer and indeed appeared to be mostly in the intramural process whether lymphoma, carcinoid, or some other neoplasm. It may represent a benign process, though it did not have a typical appearance of a lipoma proper. Plans were then made for anastomosis. The wound edges were isolated with laparotomy packs and a mjko-il-brov ileotransverse colostomy undertaken in a two-layer technique of interrupted 3-0 silk suture and interrupted 3-0 Vicryl. The ileal end piece was oversewn with interrupted 3-0 silk suture to secure hemostasis of the staple line as well it was noted. The mesenteric defect was reapproximated with running 3-0 silk suture. Irrigation was undertaken in the retroperitoneum. Hemostasis assured with electrocautery. The right lower quadrant stab incision a 7 mm flat Apollo drain was placed into the area of the prior right gutter. It was later attached to bulb suction after being secured the skin with 2-0 nylon suture. The small-bowel was returned to the abdominal cavity after gloves had been changed following the anastomosis. The omentum was applied over the abdominal viscera. Excess irrigation fluid was suctioned free after copious irrigation of the abdomen. The midline fascia was re-approximated with running bidirectional #1 PDS suture. Subcutaneous tissue was irrigated and skin closed with running subcuticular 3-0 Vicryl. Acticoat dressings were applied. The patient then underwent bilateral TAP blocks by the province archivist for postoperative analgesic benefit. Sponge, needle, and instrument counts reported as correct x3. She was taken to the recovery room in good condition having suffered no complication. Fozia Pascal MD Electronically Signed By: FOZIA PASCAL MD 05/11/23 1337 PATIENT NAME: SONNY RUIZ OPERATIVE REPORT DATE OF : 78 REPORT #: [id number] PHYSICIAN: FOZIA PASCAL MD PCP: BIJAN MAHARAJ MD REPORT IS CONFIDENTIAL AND NOT TO BE RELEASED WITHOUT AUTHORIZATION [facility] [address] [place] [address] Signed /VERONICA /[id number] cc: DO Lobo Moody MD [facility] Copies: ~ Electronically Signed By: FOZIA PASCAL MD 05/11/23 1337 PATIENT NAME: SONNY RUIZ OPERATIVE REPORT DATE OF : 78 REPORT #: [id number] PHYSICIAN: FOZIA PASCAL MD PCP: BIJAN MAHARAJ MD REPORT IS CONFIDENTIAL AND NOT TO BE RELEASED WITHOUT AUTHORIZATION
--- NOTE | 2023-05-11 15:00 | NUR ---
Pt walking in the camp with her spouse. Pt denies needs.
--- NOTE | 2023-05-11 15:16 | NUR ---
GOT SHOWER SET UP FOR PATIENT. SHE WILL CALL WHEN SHE IS READY TO TAKE HER SHOWER. PATIENT IS LAYING IN BED RIGHT NOW. PATIENT GETS UP AND SIT IN HER CHAIR FOR HER MEALS.
--- NOTE | 2023-05-11 15:18 | NUR ---
IN THIS RN NOTIFIED PT IS REQUESTING PRN PAIN MEDICATION. PT REPORTING PAIN IN ABD 07/28. PRN MEDICATION ADMINISTERED, SEE MAY. PT SITTING UP IN BED AND TAKES PO MEDICATION WITH NO ISSUES. WATER PROVIDED. AT BEDSIDE. ACTICOAT DRESSING REMOVED PER ORDERS. STERI-STRIPS REMAIN IN PLACE. ASSESSMENT COMPLETE. LUNG SOUNDS CLEAR. BOWEL TONES ACTIVE. ABD TENDERNESS WITH PALPATION. RLQ WOUND OPEN TO AIR (OLD WARREN SITE.) MIDLINE INCISION STERI-STRIPS IN PLACE D/I WITH SCANT AMOUNT OF SHADOWING NOTED. IV INFUSING WNL. PT DENIES ANY OTHER NEEDS AT THIS TIME. CALL LIGHT IN REACH. AT BEDSIDE.
--- NOTE | 2023-05-11 16:36 | NUR ---
IN IV PUMP ALARMING. PT SITTING UP IN RECLINER. PT SL AT THIS TIME. PT DENIES ANY OTHER NEEDS AT THIS TIME. CALL LIGHT IN REACH.
--- NOTE | 2023-05-11 16:47 | NUR ---
WRAPPED PATIENT'S IV. HER JUST GOT BACK SO HE IS GOING TO HELP HER WITH HER SHOWER.
--- NOTE | 2023-05-11 17:28 | NUR ---
IN TO ROUND ON PT. PT SITTING UP IN RECLINER. PT STATES "I FEEL MUCH BETTER." PT REPORTING PAIN 2/10 AND PT STATES "I AM COMFORTABLE." ICE WATER PROVIDED. PT DENIES ANY OTHER NEEDS AT THIS TIME. CALL LIGHT IN REACH. IN ROOM.
--- NOTE | 2023-05-11 19:10 | NUR ---
RECEIVED REPORT FROM LYN RN. PT IN CHAIR, STATES SHE IS "DOING WELL". SASKIA IN ROOM. NO NEEDS AT THIS TIME
--- NOTE | 2023-05-11 20:23 | NUR ---
IN ROOM WITH PRIMARY RN TO COLLECT VS AND I&O'S, CALL LIGHT IN REACH. AND CHILDREN ATTENTIVE, pt INDEPENDENT IN ROOM.
--- NOTE | 2023-05-11 20:38 | NUR ---
ANTIBIOTIC INFUSING, PT WALKING WITH AROUND THE UNIT. DENIES NEEDS.
--- NOTE | 2023-05-11 22:10 | NUR ---
ASSESSMENT COMPLETE. PT IN BED, MIDLINE SURGERY SITE WITH SS, OLD SHADOWING. REQUESTED TYLENOL FOR GENERAL DISCOMFORT, STATES THAT THE WALK WORE HER OUT. DENIES OTHER NEEDS AT THIS TIME.
--- NOTE | 2023-05-12 00:10 | NUR ---
ROUNDED ON PT, EMPTIED TOILET HAT, PT ON BACK, EYES CLOSED, RESP EVEN AND UNLABORED; ON COUCH. ANTIBOTIC CONTINUES TO INFUSE.
--- NOTE | 2023-05-12 01:06 | NUR ---
ROUNDED PT, SL IV ANTIBIOTIC COMPLETE, PT STATES SHE IS OK.
[2023-05-12 04:29] VITALS: BP 126/80
--- NOTE | 2023-05-12 04:33 | NUR ---
IN ROOM WITH PRIMARY RN TO COLLECT VS AND I&O'S, PRIMARY RN REMAINS IN ROOM FOR pt CARE, CALL LIGHT IN REACH. FRESH WATER PROVIDED.
--- NOTE | 2023-05-12 04:38 | NUR ---
ANTIBIOTIC ADMINISTERED, VS COMPLETE, I/O. PT DENIES NEED FOR PAIN MEDICATION. CONTINUE PASSING GAS, NO BM'S SO FAR THIS SHIFT.
[2023-05-12 04:40] VITALS: BP 126/80
--- NOTE | 2023-05-12 04:42 | NUR ---
FOCUSED ASSESSMENT. SURGICAL SITE MIDLINE ABD UNCHANGED. RJP SITE LAVELL UNCHANGED.
--- NOTE | 2023-05-12 06:34 | NUR ---
SURGERY MIDLINE, REMAINED UNCHANGED THIS SHIFT. PASSING GAS, NO BM'S. RA, A/O, AMBULATED SEVERAL LAPS. REQUIRED PRN PAIN MEDICATION ONCE THIS SHIFT. IV ANTIBIOTIC CURRENTLY INFUSING.
--- NOTE | 2023-05-12 07:09 | NUR ---
RECEIVED REPORT WITH ZEYAD LOW FROM ZEYAD ZUÑIGA. PATIENT IN BATHROOM INDEPENDENTLY. ON COUCH. TOLD TO CALL IF PATIENT NEEDED ANYTHING, NO NEEDS NOTED AT THIS TIME.
--- NOTE | 2023-05-12 07:15 | NUR ---
REPORT RECEIVED FROM ZEYAD DAVIS. PT UP USING RESTROOM. IN ROOM ON COUCH. NO NEEDS REPORTED.
--- NOTE | 2023-05-12 08:05 | NUR ---
IN WITH ZEYAD LOW TO GIVE MEDICATIONS PER MAR AND PERFORM INITIAL ASSESSMENT. PATIENT REPORTS DIARRHEA WITH URGENCY IN THE NIGHT, REQUESTS A PULL-UP "JUST IN CASE". PULL-UP PROVIDED. MEDICATIONS ADMINISTERED PER MAY. PATIENT REPORTS ABDOMINAL INCISION PAIN 2/10, PAIN MEDICATION ADMINISTERED TO STAY AHEAD OF PAIN. ASSESSMENT PERFORMED. LUNG SOUNDS CLEAR BILATERALLY, HEART TONES HEARD AND WNL. IV TO LEFT FOREARM FLUSHING WNL, NO PAIN OR REDNESS NOTED. BOWEL TONES HEARD IN ALL FOUR QUADRANTS, PATIENT REPORTING TENDERNESS TO PALPATION ON MIDLINE. PULSES 2+ AND EQUAL IN ALL FOUR EXTREMETIES. PATIENT LOOKING FORWARD TO POSSIBLY RETURNING HOME TODAY. PLEASANT AFFECT AND IN GOOD SPIRITS. CALL LIGHT IN REACH, NO OTHER NEEDS NOTED AT THIS TIME.
--- NOTE | 2023-05-12 08:13 | NUR ---
IN WITH SN KEE TO ADMINISTER MEDICATIONS. PT SITTING UP IN RECLINER AND REPORTING TOILETING NEEDS. PT AMBULATES TO RESTROOM AND BACK TO RECLINER. PT TAKES PO MEDICATIONS WITH NO ISSUES. PT REPORTING PAIN /10 AND STATES "UNCOMFORTABLE." PRN MEDICATION ADMINISTERED, SEE MAR. ASSESSMENT COMPLETE. LUNG SOUNDS CLEAR. BOWEL TONES ACTIVE. ABD TENDER WITH PALPATION. ABD SOFT WITH PALPATION. PT REPORTS HAVING SMALL LOOSE STOOL EARLIER THIS MORNING. PT REPORTS PASSING FLATUS. MIDLINE INCISION STERI-STRIPS IN PLACE C/D/I WITH SCANT AMOUNT OF SHADOWING. RLQ OLD WARREN SITE OPEN TO AIR, NO DRAINAGE. SCATTERED BRUISING NOTED TO ABD. IV FLUSHES AND IS INFUSING WNL. WATER PROVIDED. PT DENIES ANY OTHER NEEDS AT THIS TIME. CALL LIGHT IN REACH.
--- NOTE | 2023-05-12 09:05 | NUR ---
IN TO ANSWER CALL LIGHT. PTs IV PUMP ALARMING. IV ABX COMPLETE. PT SL AT THIS TIME. PT SITTING UP IN RECLINER AND DENIES ANY OTHER NEEDS AT THIS TIME. CALL LIGHT IN REACH.
--- NOTE | 2023-05-12 09:07 | NUR ---
IN IV ALARMING. ABX FINISHED. IV FLUSHED AND SL. CALL LIGHT IN REACH, NO OTHER NEEDS NOTED AT THIS TIME.
[2023-05-12 09:49] VITALS: BP 116/62
[2023-05-12 10:05] VITALS: BP 116/62
--- NOTE | 2023-05-12 10:11 | NUR ---
WENT IN TO TAKE PATIENTS VITALS AND HER VITALS WERE GOOD. SHE WANTED TO BE IN HER CHAIR WITH THE SUN HITTING HER. BEFORE I LEFT SHE ASKED FOR A CUP OF WATER BESIDES THAT HER CALL LIGHT WAS NEAR HER AND SHE DIDNT NEED ANYTHING ELSE FROM ME.
--- NOTE | 2023-05-12 10:30 | NUR ---
IN TO ROUND ON PT. PT SITTING UP IN RECLINER. PT DENIES PAIN AT THIS TIME. PT REPORTS HAVING A "DIARRHEA" BM AND FLUSHING IT BEFORE THIS RN COULD SEE. PT DENIES ANY OTHER NEEDS AT THIS TIME. CALL LIGHT IN REACH.
--- NOTE | 2023-05-12 11:58 | NUR ---
IN TO ROUND ON PT. PT SITTING UP IN RECLINER VISITING WITH FRIEND. IV REMOVED PT IS TO BE DC'd HOME. WATER PROVIDED. PT DENIES ANY OTHER NEEDS AT THIS TIME. CALL LIGHT IN REACH.
[2023-05-12] MEDS ORDERED: NP THYROID60 MG PO (12:00)
[2023-05-12] MEDS ORDERED: ACETAMINOPHEN500 MG PO (12:00)
[2023-05-12] MEDS ORDERED: MOTRIN IB200 MG PO (12:01)
--- NOTE | 2023-05-12 12:40 | NUR ---
IN WITH ZEYAD LOW TO DO DISCHARGE TEACHING AND EDUCATION. PATIENT IS EATING LUNCH CURRENTLY BUT WOULD LIKE THE EDUCATION. QUESTIONS ANSWERED, QUESTIONS ANSWERED. PATIENT STATES NO OTHER QUESTIONS AT THIS TIME. CALL LIGHT IN REACH.
--- NOTE | 2023-05-12 12:40 | NUR ---
IN WITH SN KEE TO GO OVER DC INSTRUCTIONS. VERBAL AND WRITTEN INSTRUCTIONS PROVIDED. QUESTIONS ANSWERED. PT SITTING UP IN RECLINER. PT ENCOURAGED TO FINISH WITH LUNCH AND WHEN PT IS READY TO CALL AND STAFF CAN TAKE PT OUT TO VEHICLE. IN ROOM. PT AND VERBALIZE UNDERSTANDING. CALL LIGHT IN REACH.
--- NOTE | 2023-05-12 12:58 | NUR ---
PATIENT WHEELED TO FRONT OF HOSPITAL AND LOADS INTO CAR WITH . PATIENT HAS DISCHARGE INSTRUCTIONS WITH HER, QUESTIONS WERE ANSWERED, PATIENT STATED NO FURTHER CONCERNS AT THIS TIME.
--- NOTE | 2023-05-12 13:20 | PATH ---
[facility] [address], [place] [address] Signed SPECIMEN(S): A PERITONEAL TISSUE SPECIMEN(S): B RIGHT COLON AND ILEUM SPECIMEN SOURCE: A. PERITONEAL TISSUE B. RIGHT COLON AND ILEUM CLINICAL HISTORY: Enterocolonic intussusception extending to hepatic flexure FINAL PATHOLOGIC DIAGNOSIS: A. Peritoneal tissue: - Peritoneal tissue with papillary mesothelial hyperplasia B. Right colon and ileum, right hemicolectomy: - Colonic mucosa with intussusception and associated ischemic pattern colitis - Appendix with fibrous obliteration of the tip - Four reactive lymph nodes - Surgical margins appear viable BRP MICROSCOPIC EXAMINATION: Histologic sections of all submitted blocks are examined by light microscopy. These findings, together with the gross examination, support the pathologic diagnosis. GROSS DESCRIPTION: A. The specimen, labeled and designated "Sakshi, a" and designated on the requisition "peritoneal tissue," is received in formalin and consists of a fragment of white-arias villous tissue (1.5 x 1.0 x 0.7 cm). The possible resection margin is inked blue and the specimen is bisected and submitted entirely in cassette A1. B. The specimen, labeled and designated "Sakshi, b" and designated on the requisition "right colon and ileum with intussusception and neoplasm of cecum," is received in formalin and consists of a previously opened portion of terminal ileum (5.5 cm in length by 4.2 cm in circumference) attached to cecum and ascending colon (20 cm in length and ranging in circumference from 10.2-14.0 cm). There is a arias-pink intact appendix (7.7 cm in length by 0.5 cm in diameter) attached to the cecum. The serosa is arias to red-brown and the mucosa of the terminal ileum and right colon is arias to red-brown PATIENT NAME: SONNY RUIZ PATHOLOGY DATE OF : 78 REPORT #: [id number] PHYSICIAN: KIRSTEN PATHOLOGY PCP: BIJAN MAHARAJ MD REPORT IS CONFIDENTIAL AND NOT TO BE RELEASED WITHOUT AUTHORIZATION [facility] [address], [place] [address] Signed and markedly edematous. No masses lesions polyps or nodules are grossly identified within the ileum cecum or ascending colon. The mucosa of the cecum is markedly red-brown and slightly roughened with an area of previous sectioning (inked blue). The appendix is sectioned to reveal is sectioned to reveal arias-pink grossly unremarkable mucosa with pinpoint lumen. Sales Agent Financial Report Service sections are submitted Cassette Summary: (B1) ileum margin, shaved (B2) distal bowel margin, shaved (B3) ileum and ileocecal valve (B4-B5) cecum previously incised area (B6) additional cecum (B7) appendix with tip and appendiceal orifice (B8-B9) ascending colon (B10) mesenteric root margin, shaved (B11) three possible lymph nodes (two intact, one fragmented) AC (under the direct supervision of a pathologist) The Gross Description was prepared using a voice recognition system. The report was reviewed for accuracy; however, sound-alike word errors, addition and/or deletions may occur. If there is any question about this report, please contact Client Services. ADDITIONAL NOTES: Immunohistochemical and/or in situ hybridization studies if performed in this case included appropriate positive controls that reacted as expected. This test was developed and its performance characteristics determined by [facility]. It has not been cleared or approved by the U.S. Food and Drug Administration. The FDA has determined that such clearance or approval is not necessary. This test is used for clinical purposes. It should not be regarded as investigational or for research. [facility] is certified under the Clinical Laboratory Improvement Amendments of 1988 (CLIA) as qualified to perform high complexity clinical laboratory testing. PERFORMING LABORATORY: Technical component was performed by [facility], [address] [place] [id number] (CLIA# [id number]). Professional interpretation was performed by [facility] [address] [id number] PATIENT NAME: SONNY RUIZ PATHOLOGY DATE OF : [birth year] REPORT #: [id number] PHYSICIAN: KIRSTEN FLOR PCP: BIJAN MAHARAJ MD REPORT IS CONFIDENTIAL AND NOT TO BE RELEASED WITHOUT AUTHORIZATION [facility] [address] [place] [address] [place] [address] Signed Diagnostician: Diego Bolaños MD Pathologist Electronically Signed 05/12/2023 Copies: ~ PATIENT NAME: SONNY RUIZ PATHOLOGY DATE OF : [birth year] REPORT #: [id number] PHYSICIAN: KIRSTEN PATHOLOGY PCP: BIJAN MAHARAJ MD REPORT IS CONFIDENTIAL AND NOT TO BE RELEASED WITHOUT AUTHORIZATION
[2023-05-12 13:54] VITALS: BP 125/65
--- NOTE | 2023-05-12 13:58 | NUR ---
PTs TO NURSES STATION REPORTING HIM AND PT ARE READY TO GO. IN TO OBTAIN VITALS. VITALS COMPLETE. BELONGINGS RETURNED. PTs MEDICAITONS RETURNED. PT DENIES ANY QUESTIONS. PT WHEELED OUT IN WHEELCHAIR BY THIS RN AND SN KEE. PT IN VEHICLE. PT AND DENY ANY OTHER NEEDS.
--- NOTE | 2023-05-14 13:43 | DS ---
[facility] [address], [place] [address] Signed ADMISSION DATE: 05/08/2023 DISCHARGE DATE: 05/12/2023 REASON FOR ADMISSION: Ileocolic intussusception with severe abdominal pain. HISTORY OF PRESENT ILLNESS: This 42-year-old white woman lives in [place], [place] with her and six children. They are of the [employer]. The patient presented to the emergency room, was evaluated for severe abdominal pain mostly in the right mid abdomen. Evaluation by Dr. Lobo Cox in the emergency room included a CT scan of the abdomen confirming a bulky intussusception of the ileum into the right colon extending up to the hepatic flexure. There was no specific neoplasm identified at that point. She is admitted for further evaluation and care. PERTINENT PHYSICAL EXAMINATION: GENERAL: Showed a pleasant white woman, who looks to be in extreme discomfort. HEENT: Mucous membranes are slightly dry. NECK: Trachea midline. CHEST: Clear. HEART: Regular without murmur. ABDOMEN: Quite tender in the right mid abdomen. There is no palpable mass, though the abdomen was rather tense. VITAL SIGNS: Her temperature is 98.8, pulse 70, respirations 18, blood pressure 131/89, and O2 saturation 96% on room air. LABORATORY STUDIES: Showed white count of 16.1, platelets 340,000, and hematocrit 42.2. Electrolytes, normal, creatinine 0.62. Liver enzymes were normal. HOSPITAL COURSE: The patient was promptly fluid resuscitated given intravenous antibiotic Unasyn and taken to operation in the evening of May 08, 2023. Through a midline incision, limited in extent, she was noted to have a rather typical ileocolic intussusception. Right hemicolectomy was performed with a [id number] ileotransverse colostomy. Upon opening of the specimen, what appeared to be a bulky 5 cm mass of the proximal cecum was identified. It was not ulcerated, did not have a typical appearance of a malignancy, however. There is no evidence of lymphoma or intramural thickening that I could tell other than edema. Postoperatively, she was advanced to a clear liquid diet the night of operation soon Electronically Signed By: FOZIA PASCAL MD 05/14/23 1343 PATIENT NAME: SONNY RUIZ DISCHARGE SUMMARY DATE OF : 78 REPORT #: [id number] PHYSICIAN: FOZIA PASCAL MD PCP: BIJAN MAHARAJ MD REPORT IS CONFIDENTIAL AND NOT TO BE RELEASED WITHOUT AUTHORIZATION [facility] [address], [place] [address] Signed thereafter, a full liquid and ultimately a regular diet. She had bowel movement by day of discharge. Her incision was healing well. A drain was placed in the right pericolic gutter area was removed the day prior to discharge. At the time of discharge, she is ambulating well, tolerating a regular diet and has had normal bowel movement. DISCHARGE MEDICATIONS: 1. Tylenol 1 g p.o. q.6 hours as needed for pain, #60. 2. Motrin 600 mg one tablet p.o. q.6 hours as needed for pain. 3. She will resume her usual medication of thyroid TALENT ACQUISITION LEAD 60 mg tablet p.o. daily, #30, refill 0. 4. We will use her previous used Lexapro daily. FOLLOWUP PLAN: She is return to see me in approximately 3-4 weeks, at which point further plans will be made for colonoscopy in the future. I have reviewed her pathologic findings with the pathologist, Dr. Diego Bolaños of [facility]. As it turns out, the lesion appeared to be mucosal lead point was in fact normal colon with extreme edema. There is no actual neoplasm at all. Four lymph nodes of the right colic mesentery were negative for disease as well. On that basis, the intussusception was spontaneous without typical lead point as it would be expected in the most adult patients. She is advised to lift no more than 20 pounds for the next four weeks and is permitted to shower and leave Steri-Strips on. DISCHARGE DIAGNOSES: 1. Spontaneous ileocolic intussusception on May 08, 2023, status post emergency right colectomy with [id number] ileotransverse colostomy. 2. Hypothyroidism. 3. Episodic insomnia. MD RADHA Mary/MEAGANL /[id number] Electronically Signed By: FOZIA PASCAL MD 05/14/23 1343 PATIENT NAME: SONNY RUIZ DISCHARGE SUMMARY DATE OF : 78 REPORT #: [id number] PHYSICIAN: FOZIA PASCAL MD PCP: BIJAN MAHARAJ MD REPORT IS CONFIDENTIAL AND NOT TO BE RELEASED WITHOUT AUTHORIZATION [address] [address] Signed cc: Lobo Cox MD Copies: LOBO COX MD ~ Electronically Signed By: FOZIA PASCAL MD 05/14/23 1343 PATIENT NAME: SONNY RUIZ DISCHARGE SUMMARY DATE OF : [birth year] REPORT #: [id number] PHYSICIAN: FOZIA PASCAL MD PCP: BIJAN MAHARAJ MD REPORT IS CONFIDENTIAL AND NOT TO BE RELEASED WITHOUT AUTHORIZATION
== END 2023-05-12 13:58 | disposition home or self-care (01) | DRG 331 ==
LOC: ED 13:42 → MS 17:08
PROVIDERS: Emergency Medicine; ADMIT Surgery; ATTEND Surgery
PROC: 0DBV0ZZ Excision of Mesentery, Open Approach (ICD-10-PCS; 2023-05-08)
PROC: 0DTF0ZZ Resection of Right Large Intestine, Open Approach (ICD-10-PCS; 2023-05-08)
PROC: 0DBW0ZZ Excision of Peritoneum, Open Approach (ICD-10-PCS; principal; 2023-05-08 18:00)
PROC: 0DBB0ZZ Excision of Ileum, Open Approach (ICD-10-PCS; 2023-05-08 18:00)
DX: K56.1 Intussusception (principal); E03.9 Hypothyroidism, unspecified; G47.00 Insomnia, unspecified; F32.A Depression, unspecified; K63.9 Disease of intestine, unspecified; K66.8 Other specified disorders of peritoneum; Z98.890 Other specified postprocedural states; Z79.899 Other long term (current) drug therapy
CPT/HCPCS: 00840; 36415; 74177; 76942; 80048; 80053; 81001; 84703; 85025; 96361; 96375; 96376; 99285-25; A9270; J0131; J0330; J1100; J1160; J1170; J1644; J1720; J1885; J2250; J2405; J2543; J2704; J2765; J2795; J3010; J3490; J7030; J7121; Q9967